=== PATIENT | male | born 1950 | race Hispanic/Latino ===

== ENCOUNTER 2017-05-25 10:04 | Inpatient (IN) | payer OTHER ==
[2017-05-25] MEDS ORDERED: Sodium Chloride 0.9% 1,000 ML IV STA (10:27)
[2017-05-25 10:42] LABS: BASO # 0.1 K/uL (0.0-0.2); BASO % 0.8 % (0.0-2.0); EOS # 0.4 K/uL (0.0-0.7); EOS % 3.5 % (0.0-4.0); HEMOGLOBIN 9.7 g/dL (12.0-18.0); LYMPH % 8.2 % (20.0-40.0); MEAN CORPUSCULAR HEMOGLOBIN 26.9 pg (27.0-31.0); MEAN CORPUSCULAR HGB CONC 33.6 g/dL (33.0-37.0); MEAN PLATELET VOLUME 6.9 fl (7.2-11.7); MONO # 0.6 K/uL (0.0-0.8); MONO % 4.9 % (0.0-10.0); NEUT # 9.8 K/uL (1.8-7.0); NEUT % 82.6 % (50.0-75.0); NRBC % 0.1 % (0.0-0.0); PLATELET COUNT 406 K/uL (130-400); RED CELL DISTRIBUTION WIDTH 15.4 % (11.5-14.5); WHITE BLOOD COUNT 11.8 K/uL (4.8-10.8)
[2017-05-25 10:56] LABS: ALB/GLOB RATIO 1.3 (1.0-2.1); ALBUMIN 3.5 g/dL (3.5-5.0); ALT/SGPT 30 U/L (21-72); AST/SGOT 25 U/L (17-59); BLOOD UREA NITROGEN 22 mg/dl (9-20); CALCIUM 8.9 mg/dL (8.4-10.2); GFR AFRICAN-AMERICAN 46; GFR NON-AFRICAN AMERICAN 38
[2017-05-25 11:04] LABS: VENOUS BLOOD GAS PCO2 44 mmHg (40-60); VENOUS BLOOD GAS PO2 24 mm/Hg (30-55)
[2017-05-25 11:09] LABS: B-TYPE NATRIURETIC PEPTIDE 2660 pg/ml (0-900)
[2017-05-25 11:16] LABS: INR 1.1 (0.9-1.2); PARTIAL THROMBOPLASTIN TIME 32.5 Seconds (25.6-37.1); PROTHROMBIN TIME 11.7 Seconds (9.8-13.1)
[2017-05-25 11:24] LABS: EOSINOPHIL 1 % (0-7); LYMPHOCYTE 9 % (20-50); MONOCYTE 5 % (0-10); NEUTROPHIL 85 % (42-75); PLATELET ESTIMATE NORMAL (NORMAL); TOTAL CELLS COUNTED 100
[2017-05-25 11:26] LABS: ANISOCYTOSIS SLIGHT; LARGE PLATELETS PRESENT; OVALOCYTES SLIGHT; POIKILOCYTOSIS SLIGHT
[2017-05-25] MEDS ORDERED: Iodixanol 320 MG/ML 100 ML BOTTLE IV ONE ×2 (11:35→12:09)
[2017-05-25] MEDS ORDERED: Sodium Chloride 0.9% 50 ML IV ONE ×2 (11:35→12:10)
--- NOTE | 2017-05-25 12:27 | ED PDOC ---
Syncope/Near Syncope/Dizziness Time Seen by Provider: 05/25/17 10:08 Chief Complaint (Nursing): Dizziness/Lightheaded Chief Complaint (Provider): I got dizzy History Per: Patient History/Exam Limitations: clinical condition Onset/Duration Of Symptoms: Hrs (1), Sudden Onset Current Symptoms Are (Timing): Still Present Activity At Onset Of Symptoms: Standing Associated Symptoms Preceding Syncopal Episode: Lightheadedness Possible Causative Factor(s): Lightheaded W/Standing, Lightheaded W/Exertion Fall Associated With With Symptoms: No Severity: Severe Additional Complaint(s): 66yo male history significant for 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 EMS found patient supine, pallorous and diaphoretic. He denies chest pain, abdominal pain, vomiting, dark/tarry stools or BRBPR. He notes new onset low back pain this morning and some SOB over the last week. Denies use of anticoagulants other than plavix. States hes not a diabetic. Vasc surgery Dr Simms at [facility]- I called office d/w Chris CHOI approx 10am who states patient had similar presyncopal episode about 2 weeks ago, before procedure. Was seen and worked up by cardiology who believed it to be vasovagal. He did have successful endovascular repair type 3 endoleak 05/13 without complication per JIMBO Herman. Initial history limited as patient poor historian on arrival- most history obtained from records [facility] faxed Past Medical History Vital Signs: Last Vital Signs Temp Pulse 56 L 05/25/17 11:29 Resp 18 05/25/17 11:29 BP 104/55 L 05/25/17 11:29 Pulse Ox 98 05/25/17 11:29 - Medical History PMH: Cardia Arrhythmia, HTN - Surgical History Other surgeries: traumatic leg surgery w vascular repair, AAA repair - Family History Family History: States: Unknown Family Hx - Living Arrangements Living Arrangements: With Family (in [place]) - Social History Current smoker - smoking cessation education provided: No (+prior smoker) - Home Medications Home Medications: Ambulatory Orders Medication Instructions Recorded Aspirin [Ecotrin] 81 mg PO DAILY 05/25/17 Carvedilol [Coreg] 12.5 mg PO Q12H 05/25/17 Clopidogrel [Plavix] 75 mg PO DAILY 05/25/17 Dextroamphetamine/Amphetamine 30 mg PO TID 05/25/17 [Adderall 30 mg Tablet] Fenofibrate 134 mg PO DAILY 05/25/17 Losartan [Cozaar] 50 mg PO BID 05/25/17 Pantoprazole Sodium [Protonix] 40 mg PO BID 05/25/17 Simvastatin [Zocor] 20 mg PO HS 05/25/17 amLODIPine [Norvasc] 5 mg PO DAILY 05/25/17 - Allergies Allergies/Adverse Reactions: Allergies Allergy/AdvReac Type Severity Reaction Status Date / Time No Known Allergies Allergy Verified 05/25/17 10:22 Review of Systems Constitutional: Positive for: Weakness. Negative for: Fever, Chills Cardiovascular: Positive for: Light Headedness. Negative for: Chest Pain, Palpitations Respiratory: Positive for: Shortness of Breath Gastrointestinal: Negative for: Nausea, Vomiting, Abdominal Pain Genitourinary Male: Negative for: Dysuria, Scrotal Pain Musculoskeletal: Positive for: Leg Pain. Negative for: Neck Pain, Back Pain Skin: Negative for: Rash, Lesions, Jaundice Neurological: Positive for: Dizziness. Negative for: Numbness, Incoordination, Change in Speech, Confusion, Headache Psych: Negative for: Depression Physical Exam - Reviewed Nursing Documentation Reviewed: Yes Vital Signs Reviewed: Yes - Physical Exam Appears: Positive for: Uncomfortable (+pallor and diaphoresis) Head Exam: Positive for: ATRAUMATIC, NORMAL INSPECTION, NORMOCEPHALIC Skin: Positive for: Normal Color, Warm, DRY Eye Exam: Positive for: EOMI, Normal appearance, PERRL ENT: Positive for: Normal ENT Inspection Neck: Positive for: Normal, Painless ROM Cardiovascular/Chest: Positive for: Chest Non Tender Respiratory: Positive for: CNT, Normal Breath Sounds Pulses-Femoral (L): 1+ Pulses-Femoral (R): 1+ Pulses-Radial (L): 1+ Pulses-Radial (R): 1+ Gastrointestinal/Abdominal: Positive for: Bowel Sounds, Soft, Other (no pulsatile mass). Negative for: Tenderness, Guarding Back: Positive for: Normal Inspection Extremity: Positive for: Normal ROM. Negative for: Deformity, Swelling Neurologic/Psych: Positive for: Alert, search engine marketing strategist II-XII (intact), Oriented. Negative for: Motor/Sensory Deficits - Laboratory Results Result Diagrams: 05/26/17 04:20 05/26/17 04:20 - ECG ECG: Positive for: Interpreted By Me, Discussed With Product Manager ECG Rhythm: Positive for: Sinus Bradycardia, Nonspecific Changes Interpretation Of ECG: prolonged qtc 513 O2 Sat by Pulse Oximetry: 98 Pulse Ox Interpretation: Normal - Radiology X-Ray: Read By Radiologist X-Ray Interpretation: Infiltrates Medical Decision Making Medical Decision Making: Workup initiated immediately for hypotension/ bradycardia with pallor and diaphoresis. Rule-out ACS/ aortic leak/ AAA, PE, arrythmia, GI bleed or other life threatening etiology. Further history to be obtained from vascular team at [facility] Accucheck performed ~200 IVF bolus initiated. EKG reviewed, sinus kenneth at 54bpm with qtc 515 1130a- d/w radiologist Dr Haney- recommend proceeding w IV contrast despite marginal GFR given AAA repair and need r/o PE (pt c/o recent SOB, had recent vascular procedure and hx PE many years ago). IVF continues. Labs reviewed, lactate <2; moderate anemia. Hgb from [facility] 11.4 on 05/11 Trop mildly elevated- continues to deny chest pain. Holding ASA to confirm no vascular leak. CT report d/w Dr Haney in radiology: Accession No. : [id number] Patient Name / ID : EMILEE Cabrera / [id number] Exam Date : 05/25/2017 11:56:13 ( Approved ) Study Comment : Sex / Age : M / 66Y Creator : Natty Winston Dictator : Natty Winston Shearing Machine Feeder : Clinical Analyst : Natty Winston Approver2 : Report Date : 05/25/2017 13:57:01 My Comment : PROCEDURE: CT Angiography Chest, Abdomen and Pelvis with and without intravenous contrast HISTORY: syncope. recent endov AAA repair, hx PE COMPARISON: None. TECHNIQUE: Contiguous axial images of the chest, abdomen and pelvis were obtained in the phase of aortic enhancement. A noncontrast enhanced CT of the chest was also obtained to evaluate for possible intramural thrombus. Coronal and sagittal reformats were generated. IV dose administered: 100 mL Visipaque 320. Second injection of 80 mL of Visipaque 320 Radiation dose: Total exam DLP = mGy-cm. This CT exam was performed using one or more of the following dose reduction techniques: Automated exposure control, adjustment of the mA and/or kV according to patient size, and/or use of iterative reconstruction technique. FINDINGS: CT ANGIOGRAPHY OF THE CHEST WITH & WITHOUT CONTRAST: AORTA (CHEST AND ABDOMEN): The thoracic aorta is ectatic and tortuous. There is a severe atherosclerotic disease seen. There are multiple foci of mural thickening and foci of focal dissection seen at the aortic arch and descending thoracic aorta associated with intimal calcification displacement in the noncontrast exam. Mild aneurysmal changes seen at the descending thoracic aorta with maximum diameter of 4.2 centimeter. There is infrarenal abdominal aortic aneurysm. The patient is status post endovascular graft repair of the AAA with the stent seen extending from the level of the celiac trunk to the distal abdominal aorta. There are also kissing endovascular stent extending from the distal abdominal aorta through the common iliac arteries. The infra renal abdominal aortic aneurysm measures 5.2 centimeter in the maximum transverse diameter. There is also right common iliac artery aneurysm measures 3 centimeter in the transverse diameter. There is no evidence of endoleak in the abdominal aortic graft stent. The patient is also status post endovascular stent at the proximal portion of the SMA and in both renal arteries. The celiac trunk is patent. There is a focal approximately 60- 70 percent stenosis seen at the origin of the celiac trunk. The SMA is also patent with endovascular graft seen at the proximal and origin of the SMA. There is delayed enhancement in the left kidney compared to the right suggestive of stenosis or occlusion at the left renal artery stent. The right renal artery is patent. There is moderate to severe atherosclerotic disease in the iliac arteries. There is focal approximately 70 percent stenosis at the distal right external iliac artery and proximal right common femoral artery. There are also foci of mild to moderate stenosis seen at the left external and common femoral arteries. Both internal iliac arteries are not opacified and likely occluded. LUNGS: There are advanced emphysematous changes predominant in the upper lobes. There is hazy opacity and infiltrate at the posterior aspect of the right mid and lower lung suspicious for pneumonia. Bibasilar small opacities likely atelectasis. MEDIASTINUM: The heart is mildly to moderately enlarged. The main pulmonary artery is normal in caliber. There is diffuse esophageal mucosal thickening. LYMPH NODES: Unremarkable. PLEURA: There are bilateral trace pleural effusions slightly larger on the right. BONES: Unremarkable. OTHER FINDINGS: None. CT ANGIOGRAPHY OF THE ABDOMEN AND PELVIS WITH CONTRAST: LIVER: There is 11 millimeter enhancing lesion in the inferior aspect of the right liver lobe image 132 series 11 of uncertain etiology. The liver is mildly enlarged. GALLBLADDER AND BILE DUCTS: Unremarkable. PANCREAS: Unremarkable. No gross lesion or ductal dilatation. SPLEEN: Unremarkable. ADRENALS: Unremarkable. No mass. KIDNEYS AND URETERS: The left kidney is smaller than the right. There is significant delayed in the left kidney suggestive of severe stenosis in the left renal artery. There are cystic lesions seen in both kidneys. No evidence of hydronephrosis. Vascular calcification are also seen in both renal arteries. VASCULATURE: Infrarenal abdominal aortic aneurysm with endovascular stent as described above. STOMACH AND BOWEL: Unremarkable. No obstruction. No gross mural thickening. APPENDIX: Normal appendix. PERITONEUM: Unremarkable. No free fluid. No free air. LYMPH NODES: Unremarkable. No enlarged lymph nodes. BLADDER: Diffuse urinary bladder wall thickening is noted. REPRODUCTIVE: The prostate is a heterogeneous mildly enlarged. BONES: No acute fracture. OTHER FINDINGS: None. IMPRESSION: No evidence of pulmonary embolus. Infrarenal abdominal aortic aneurysm measures 5.2 centimeter in the maximum transverse diameter. Status post endovascular stent insertion extending from the celiac trunk to the distal abdominal aorta and bilateral common iliac kissing stents extending from distal abdominal aorta to the distal left common iliac artery and to right external iliac artery. No evidence of endoleak in this study. Status post stent at the proximal and origin of SMA and both renal arteries. 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 Advanced emphysema. Heterogeneous opacity and small infiltrate at the right lung suspicious for pneumonia. Please correlate clinically. Cardiomegaly. Diffuse esophageal in mucosal thickening. Correlate clinically for esophagitis. 1.1 centimeter enhancing nodule at the right liver lobe of uncertain etiology. Interval follow-up reassessment of the liver by CT or MRI is suggested. Foci of stenosis in the external iliac and common femoral arteries more severe on the right. Enlarged prostate. Diffuse urinary bladder wall thickening. Antibiotics initiated for pneumonia, blood cultures obtained prior to Abx ~220p Dr Louis pt private civil rights investigator paged, awaiting call-back. Pt initially requested transfer to [facility] in [facility], attempts made to arrange transfer, then discussed w jose roberto dominguez, wants patient kept at [facility], discussed other options for transfer- [facility] included, and they refuse, want to remain [facility]. ~ 230p Case d/w Dr Fountain relocation services specialist [facility] cardiology, agrees w plan no anticoagulation for now,will consult. Review of [facility] records reveals lexiscan 04/11 no ekg ischemia. 3p Dr Olivarez ICU in ED, admit Dr Veloz relocation services specialist. 310p Case rediscussed w Chris PA for Dr Simms, they do not have broad cardio capabilities at [facility] thus would recommend against transfer. Disposition - Clinical Impression Clinical Impression: NSTEMI (non-ST elevated myocardial infarction), Pneumonia, Syncope, Bradycardia , Anemia - Patient ED Disposition Is Patient to be Admitted: Yes Counseled Patient/Family Regarding: Studies Performed, Diagnosis - Disposition Disposition Time: 13:00 (transfer vs admit (pt initially wanted transfer, hence delayed admission process [facility])) Condition: FAIR - Pt Status Changed To: Hospital Disposition Of: Inpatient - Admit Certification Admit to Inpatient:: After my assessment, the patient will require hospitalization for at least two midnights. This is because of the severity of symptoms shown, intensity of services needed, and/or the medical risk in this patient being treated as an outpatient. - POA Present On Arrival: Poor Glycemic Control
--- NOTE | 2017-05-25 12:45 | RAD ---
PROCEDURE: CHEST RADIOGRAPH, 1 VIEW HISTORY: syncope COMPARISON: FINDINGS: LUNGS: Increased parenchymal markings left lower lobe accentuated by rotation. Pneumonia should be considered. PLEURA: No pneumothorax or pleural fluid seen. CARDIOVASCULAR: Cardiomegaly. No radiographic findings to suggest acute or significant cardiovascular disease. OSSEOUS STRUCTURES: No significant abnormalities. VISUALIZED UPPER ABDOMEN: Normal. OTHER FINDINGS: None. IMPRESSION: Left lower lobe infiltrate.
--- NOTE | 2017-05-25 13:58 | CT ---
PROCEDURE: CT Angiography Chest, Abdomen and Pelvis with and without intravenous contrast HISTORY: syncope. recent endov AAA repair, hx PE COMPARISON: None. TECHNIQUE: Contiguous axial images of the chest, abdomen and pelvis were obtained in the phase of aortic enhancement. A noncontrast enhanced CT of the chest was also obtained to evaluate for possible intramural thrombus. Coronal and sagittal reformats were generated. IV dose administered: 100 mL Visipaque 320. Second injection of 80 mL of Visipaque 320 Radiation dose: Total exam DLP = mGy-cm. This CT exam was performed using one or more of the following dose reduction techniques: Automated exposure control, adjustment of the mA and/or kV according to patient size, and/or use of iterative reconstruction technique. FINDINGS: CT ANGIOGRAPHY OF THE CHEST WITH & WITHOUT CONTRAST: AORTA (CHEST AND ABDOMEN): The thoracic aorta is ectatic and tortuous. There is a severe atherosclerotic disease seen. There are multiple foci of mural thickening and foci of focal dissection seen at the aortic arch and descending thoracic aorta associated with intimal calcification displacement in the noncontrast exam. Mild aneurysmal changes seen at the descending thoracic aorta with maximum diameter of 4.2 centimeter. There is infrarenal abdominal aortic aneurysm. The patient is status post endovascular graft repair of the AAA with the stent seen extending from the level of the celiac trunk to the distal abdominal aorta. There are also kissing endovascular stent extending from the distal abdominal aorta through the common iliac arteries. The infra renal abdominal aortic aneurysm measures 5.2 centimeter in the maximum transverse diameter. There is also right common iliac artery aneurysm measures 3 centimeter in the transverse diameter. There is no evidence of endoleak in the abdominal aortic graft stent. The patient is also status post endovascular stent at the proximal portion of the SMA and in both renal arteries. The celiac trunk is patent. There is a focal approximately 60- 70 percent stenosis seen at the origin of the celiac trunk. The SMA is also patent with endovascular graft seen at the proximal and origin of the SMA. There is delayed enhancement in the left kidney compared to the right suggestive of stenosis or occlusion at the left renal artery stent. The right renal artery is patent. There is moderate to severe atherosclerotic disease in the iliac arteries. There is focal approximately 70 percent stenosis at the distal right external iliac artery and proximal right common femoral artery. There are also foci of mild to moderate stenosis seen at the left external and common femoral arteries. Both internal iliac arteries are not opacified and likely occluded. LUNGS: There are advanced emphysematous changes predominant in the upper lobes. There is hazy opacity and infiltrate at the posterior aspect of the right mid and lower lung suspicious for pneumonia. Bibasilar small opacities likely atelectasis. MEDIASTINUM: The heart is mildly to moderately enlarged. The main pulmonary artery is normal in caliber. There is diffuse esophageal mucosal thickening. LYMPH NODES: Unremarkable. PLEURA: There are bilateral trace pleural effusions slightly larger on the right. BONES: Unremarkable. OTHER FINDINGS: None. CT ANGIOGRAPHY OF THE ABDOMEN AND PELVIS WITH CONTRAST: LIVER: There is 11 millimeter enhancing lesion in the inferior aspect of the right liver lobe image 132 series 11 of uncertain etiology. The liver is mildly enlarged. GALLBLADDER AND BILE DUCTS: Unremarkable. PANCREAS: Unremarkable. No gross lesion or ductal dilatation. SPLEEN: Unremarkable. ADRENALS: Unremarkable. No mass. KIDNEYS AND URETERS: The left kidney is smaller than the right. There is significant delayed in the left kidney suggestive of severe stenosis in the left renal artery. There are cystic lesions seen in both kidneys. No evidence of hydronephrosis. Vascular calcification are also seen in both renal arteries. VASCULATURE: Infrarenal abdominal aortic aneurysm with endovascular stent as described above. STOMACH AND BOWEL: Unremarkable. No obstruction. No gross mural thickening. APPENDIX: Normal appendix. PERITONEUM: Unremarkable. No free fluid. No free air. LYMPH NODES: Unremarkable. No enlarged lymph nodes. BLADDER: Diffuse urinary bladder wall thickening is noted. REPRODUCTIVE: The prostate is a heterogeneous mildly enlarged. BONES: No acute fracture. OTHER FINDINGS: None. IMPRESSION: No evidence of pulmonary embolus. Infrarenal abdominal aortic aneurysm measures 5.2 centimeter in the maximum transverse diameter. Status post endovascular stent insertion extending from the celiac trunk to the distal abdominal aorta and bilateral common iliac kissing stents extending from distal abdominal aorta to the distal left common iliac artery and to right external iliac artery. No evidence of endoleak in this study. Status post stent at the proximal and origin of SMA and both renal arteries. 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 Advanced emphysema. Heterogeneous opacity and small infiltrate at the right lung suspicious for pneumonia. Please correlate clinically. Cardiomegaly. Diffuse esophageal in mucosal thickening. Correlate clinically for esophagitis. 1.1 centimeter enhancing nodule at the right liver lobe of uncertain etiology. Interval follow-up reassessment of the liver by CT or MRI is suggested. Foci of stenosis in the external iliac and common femoral arteries more severe on the right. Enlarged prostate. Diffuse urinary bladder wall thickening.
[2017-05-25] MEDS ORDERED: Azithromycin 500 MG in Sodium Chloride 0.9% 250 ML IVPB STA (14:00)
[2017-05-25] MEDS ORDERED: Azithromycin 500 MG IV IVPB ONE (15:06)
[2017-05-25] MEDS ORDERED: cefTRIAXone (Rocephin) 1 gm Inj ONE (15:06)
--- NOTE | 2017-05-25 16:35 | CARD ---
APPROVED REPORT EKG Measurement Heart [id number] <Conclusion> Sinus bradycardia Possible Left atrial enlargement Left ventricular hypertrophy Nonspecific ST abnormality Prolonged QT Abnormal ECG
[2017-05-25] MEDS ORDERED: Dextrose 5%/0.45% NS 1,000 ML IV SCH (19:00)
[2017-05-25] MEDS: Pantoprazole 40 mg EC Tab PO SCH (20:38)
--- NOTE | 2017-05-26 00:22 | CP.PCM.CON ---
History of Present Illness - History of Present Illness History of Present Illness: 66 y/o male admitted with presyncope and hypotension. Pt states he was sitting at work, when he felt dizzy and about to pass out. EMS was called. Upon arrival bp was 80/40, he was diaphoretic and pale per ER doctor. Pt denies cp or palp, he does admit to [facility] 2 days ago. He states it occurred several times with minimal exertion. No orthopnea or PND, no increase in SUBHA. Pt recently underwent his 3rd PVI to AAA at [place] several weeks ago. Pt had a presyncopal episode while in clinic at [place]. He underwent lexiscan st which was normal. echo revealed nml ef, no . Pt has a long history of PVD with multiple stents in b/l [employer] worker's and pvi x 3 for AAA. He denies cardiac cath or CAD history. At time of exam his bp is stable and he is asymptomatic. Trop x 1 negative. EKG shows LVH and LAD. Review of Systems - Constitutional Constitutional: As Per HPI. absent: Anorexia, Chills, Daytime Sleepiness, Excessive Sweating, Fatigue, Fever, Frequent Falls, Headache, Increased Appetite , Lethargy, Malaise, Night Sweats, Snoring, Sleep Apnea, Weight Gain, Weight Loss, Weakness, Other - EENT Eyes: absent: As Per HPI, Blind Spots, Blurred Vision, Change in Vision, Decreased Night Vision, Diplopia, Discharge, Dry Eye, Exophthalmos, Floaters, Irritation, Itchy Eyes, Loss of Peripheral Vision, Pain, Photophobia, Requires Corrective Lenses, Sees Flashes, Spots in Vision, Tunnel Vision, Other Visual Disturbances, Loss of Vision, Other Ears: absent: As Per HPI, Decreased Hearing, Ear Discharge, Ear Pain, Tinnitus, Abnormal Hearing, Disequilibrium, Dizziness, Other Nose/Mouth/Throat: absent: As Per HPI, Epistaxis, Nasal Congestion, Nasal Discharge, Nasal Obstruction, Nasal Trauma, Nose Pain, Post Nasal Drip, Sinus Pain, Sinus Pressure, Bleeding Gums, Change in Voice, Dental Pain, Dry Mouth, Dysphagia, Halitosis, Hoarsness, Lip Swelling, Mouth Lesions, Mouth Pain, Odynophagia, Sore Throat, Throat Swelling, Tongue Swelling, Facial Pain, Neck Pain, Neck Mass, Other - Cardiovascular Cardiovascular: As Per HPI, Diaphoresis, Dyspnea. absent: Acrocyanosis, Chest Pain, Chest Pain at Rest, Chest Pain with Activity, Claudication, Dyspnea on Exertion, Edema, Irregular Heart Rhythm, Pain Radiating to Arm/Neck/Jaw, Leg Edema, Leg Ulcers, Lightheadedness, Orthopnea, Palpitations, Paroxysmal Nocturnal Dyspnea, Pedal Edema, Radiating Pain, Rapid Heart Rate, Slow Heart Rate, Syncope, Other - Respiratory Respiratory: As Per HPI, Dyspnea on Exertion. absent: Cough, Dyspnea, Hemoptysis, Wheezing, Snoring, Stridor, Pain on Inspiration, Chest Congestion, Excessive Mucous Production, Change in Mucous Color, Pain with Coughing, Other - Gastrointestinal Gastrointestinal: As Per HPI. absent: Abdominal Pain, Belching, Bloating, Change in Bowel Habits, Change in Stool Character, Coffee Ground Emesis, Constipation, Cramping, Diarrhea, Dyspepsia, Dysphagia, Early Satiety, Excessive Flatus, Fecal Incontinence, Heartburn, Hematemesis, Hematochezia, Loose Stools, Melena, Nausea, Odynophagia, Temesmus, Vomiting, Other - Genitourinary Genitourinary: absent: As Per HPI, Change in Urinary Stream, Difficulty Urinating, Dysuria, Flank Pain, Hematuria, Pyuria, Nocturia, Urinary Incontinence, Urinary Frequency, Urinary Hesitance, Urinary Urgency, Voiding Freq/Small Amts, Freq UTI, Hx Renal/Bladder Calculi, Hx /Renal Surgery, Bladder Distension, Other - Musculoskeletal Musculoskeletal: absent: As Per HPI, Abnormal Gait, Arthralgias, Atrophy, Back Pain, Deformity, Joint Swelling, Limited Range of Motion, Loss of Height, Muscle Cramps, Muscle Weakness, Myalgias, Neck Pain, Numbness, Radiating Pain into Limb, Stiffness, Tingling, Other - Integumentary Integumentary: absent: As Per HPI, Acne, Alopecia, Bleeding Lesions, Change in Hair, Change in Nails, Change in Pigmentation, Changing Lesions, Dry Skin, Erythema, Furuncle, Hirsutism, Lesions, New Lesions, Non-Healing Lesions, Photosensitivity, Pruritus, Rash, Skin Pain, Skin Ulcer, Sores, Striae, Swelling , Unusual Bruising, Wounds, Jaundice, Other - Neurological Neurological: Dizziness. absent: As Per HPI, Abnormal Gait, Abnormal Hearing, Abnormal Movements, Abnormal Speech, Behavioral Changes, Burning Sensations, Confusion, Convulsions, Disequilibrium, Numbness, Focal Weakness, Frequent Falls , Headaches, Lack of Coordination, Loss of Vision, Memory Loss, Paresthesias, Radicular Pain, Restless Legs, Sensory Deficit, Syncope, Tingling, Tremor, Vertigo, Weakness, Other Visual Disturbances, Other - Psychiatric Psychiatric: absent: As Per HPI, Abnormal Sleep Pattern, Anhedonia, Anxiety, Auditory Hallucinations, Behavioral Changes, Change in Appetite, Change in Libido, Confusion, Depression, Difficulty Concentrating, Hallucinations, Homicidal Ideation, Hopelessness, Irritability, Memory Loss, Mood Swings, Panic Attacks, Paranoia, Suicidal Ideation, Visual Hallucinations, Tactile Hallucinations, Other - Endocrine Endocrine: absent: As Per HPI, Change in Body Appearance, Change in Libido, Cold Intolorance, Deepening of Voice, Excessive Sweating, Fatigue, Flushing, Heat Intolorance, Increase in Ring/Shoe/Hat Size, Palpitations, Polydipsia, Polyphagia, Polyuria, Other - Hematologic/Lymphatic Hematologic: absent: As Per HPI, Easy Bleeding, Easy Bruising, Lymphadenopathy, Other Past Patient History - Tetanus Immunizations Tetanus Immunization: Unknown - Past Medical History & Family History Past Medical History?: Yes Past Family History: Reviewed and not pertinent - Past Social History Smoking Status: Former Smoker Chewing Tobacco Use: No Cigar Use: No Alcohol: None Drugs: Denies Home Situation {Lives}: With Family Domestic Violence: Negative - CARDIAC Hx Cardia Arrhythmia: Yes Hx Hypertension: Yes - PULMONARY Hx Respiratory Disorders: Yes Hx Chronic Obstructive Pulmonary Disease (COPD): Yes - NEUROLOGICAL Hx Neurological Disorder: No - HEENT Hx HEENT Problems: No - RENAL Hx Chronic Kidney Disease: Yes - ENDOCRINE/METABOLIC Hx Endocrine Disorders: No - HEMATOLOGICAL/ONCOLOGICAL Hx Blood Disorders: Yes Hx Anemia: Yes - INTEGUMENTARY Hx Dermatological Problems: No - MUSCULOSKELETAL/RHEUMATOLOGICAL Hx Musculoskeletal Disorders: No Hx Falls: No - GASTROINTESTINAL Hx Gastrointestinal Disorders: No - GENITOURINARY/GYNECOLOGICAL Hx Genitourinary Disorders: No - PSYCHIATRIC Hx Psychophysiologic Disorder: No Hx Substance Use: No - SURGICAL HISTORY Hx Surgeries: Yes Hx Abdominal Aortic Aneurysm Repair: Yes Hx Angiogram: Yes Hx Cardiac Catheterization: No - ANESTHESIA Hx Anesthesia: Yes Meds Allergies/Adverse Reactions: Allergies Allergy/AdvReac Type Severity Reaction Status Date / Time No Known Allergies Allergy Verified 05/25/17 10:22 - Medications Medications: Current Medications Amlodipine Besylate (Norvasc) 5 mg PO DAILY [facility] Aspirin (Aspirin Chewable) 81 mg PO DAILY [facility] Atorvastatin Calcium (Lipitor) 40 mg PO DAILY [facility] Clopidogrel Bisulfate (Plavix) 75 mg PO DAILY [facility] Enoxaparin Sodium (Lovenox) 30 mg SC DAILY [facility] PRN Reason: Protocol Fenofibrate (Tricor) 145 mg PO DAILY [facility] Dextrose/Sodium Chloride (Dextrose 5%/0.45% Ns 1000 Ml) 1,000 mls @ 42 mls/hr IV .[id number] [facility] Stop: 05/26/17 18:52 Last Admin: 05/25/17 19:43 Dose: 42 mls/hr Losartan Potassium (Cozaar) 50 mg PO Q12 [facility] Last Admin: 05/25/17 21:41 Dose: 50 mg Pantoprazole Sodium (Protonix Ec Tab) 40 mg PO BID [facility] Last Admin: 05/25/17 20:38 Dose: 40 mg Physical Exam - Constitutional Appears: Non-toxic - Head Exam Head Exam: ATRAUMATIC, NORMAL INSPECTION, NORMOCEPHALIC - Eye Exam Eye Exam: EOMI, Normal appearance, PERRL. absent: Conjunctival injection, Nystagmus, Periorbital swelling, Periorbital tenderness, Scleral icterus Pupil Exam: NORMAL ACCOMODATION, PERRL. absent: Fixed, Irregular, Miosis, Mydriatic, Unequal - ENT Exam ENT Exam: Mucous Membranes Moist, Normal Exam. absent: Mucous Membranes Dry, Normal External Ear Exam, Normal Oropharynx, TM's Normal Bilaterally - Neck Exam Neck exam: Positive for: Normal Inspection. Negative for: Full Rom, Lymphadenopathy, Meningismus, Tenderness, Thyromegaly - Respiratory Exam Respiratory Exam: Decreased Breath Sounds, Clear to Auscultation Bilateral, NORMAL BREATHING PATTERN. absent: Accessory Muscle Use, Chest Wall Tenderness, Prolonged Expiratory Phase, Rales, Rhonchi, Wheezes, Respiratory Distress, Stridor - Cardiovascular Exam Cardiovascular Exam: REGULAR RHYTHM, +S1, +S2, Systolic Murmur. absent: Bradycardia, Tachycardia, Clicks, Diastolic murmur, Gallop, Irregular Rhythm, JVD, RRR, Rubs, +S4 - GI/Abdominal Exam GI & Abdominal Exam: Normal Bowel Sounds, Soft. absent: Bruit, Diminished Bowel Sounds, Distended, Firm, Guarding, Hernia, Hyperactive Bowel Sounds, Hypoactive Bowel Sounds, Mass, Organomegaly, Pulsatile Mass, Rebound, Rigid, Tenderness - Rectal Exam Rectal Exam: Deferred - Extremities Exam Extremities exam: Negative for: calf tenderness, full ROM, joint swelling, normal capillary refill, normal inspection, pedal edema, tenderness, pedal pulses present Additional comments: pulses 1+ b/l, chronic vascular changes noted. - Back Exam Back exam: NORMAL INSPECTION. absent: CVA tenderness (L), CVA tenderness (R), FULL ROM, muscle spasm, paraspinal tenderness, rash noted, tenderness, vertebral tenderness - Neurological Exam Neurological exam: Alert, CN II-XII Intact, Normal Gait, Oriented x3, Reflexes Normal - Psychiatric Exam Psychiatric exam: Normal Affect, Normal Mood - Skin Skin Exam: Dry, Intact, Normal Color, Warm Results - Vital Signs Recent Vital Signs: Last Vital Signs Temp 97.8 F 05/25/17 20:00 Pulse 74 05/25/17 22:00 Resp 26 H 05/25/17 22:00 BP 158/77 H 05/25/17 22:00 Pulse Ox 92 L 05/25/17 22:00 - Labs Result Diagrams: 05/26/17 04:20 05/26/17 04:20 Labs: Laboratory Results - last 24 hr 05/25/17 05/25/17 05/25/17 15:39 15:39 16:18 Troponin I 0.4270 H* Stool Occult Blood Blood Type O POSITIVE Blood Type Confirm O POSITIVE Antibody Screen Negative BBK History Checked No verified bt 05/25/17 17:00 Troponin I Stool Occult Blood Negative Blood Type Blood Type Confirm Antibody Screen BBK History Checked Assessment & Plan (1) Hypotension Status: Acute (2) AAA (abdominal aortic aneurysm) Status: Chronic (3) PVD (peripheral vascular disease) with claudication Status: Acute (4) History of tobacco abuse Status: Acute (5) Bradycardia Status: Acute (6) NSTEMI (non-ST elevated myocardial infarction) Status: Acute (7) Syncope Status: Acute - Assessment and Plan (Free Text) Plan: PT HAD 2 EPISODES IN 3 WEEKS. AFTER FIRST EPISODE HE HAD LEXISCAN NUCLEAR ST WHICH WAS REPORTEDLY WNL. TODAY PTS FIRST TROP IS POSITIVE. GIVEN THE HX OF SEVERE PVD, THE LIKELIHOOD OF CAD IS HIGH. I SUSPECT TRIPLE VESSEL DISEASE GIVEN PTS RECENT NORMAL STRESS TEST. PT SHOULD UNDERGO CARDIAC CATHETERIZATION. PLAN WILL BE FOR RADIAL ACCESS, ON THURSDAY AT [facility]. WILL MONITOR PT IN ICU. PT SHOULD HAVE TROP TRENDED ECHO IVF HYDRATION FOR HIS CR NEPHROLOGY EVAL HOLD ALL NEPHRO TOXIC MEDICATIONS MUCOMYST DUAL ANTIPLTS MONITOR IN ICU SERIAL EKGS RECORDS ARE BEING OBTAINED FROM [facility]. 120 MIN TOTAL CARE TIME.
[2017-05-26 00:48] LABS: CK-MB 1.65 ng/mL (0.0-3.38)
[2017-05-26 01:03] LABS: TROPONIN I 0.366 ng/mL (0.00-0.120)
--- NOTE | 2017-05-26 03:17 | CON ---
DATE: 05/25/2017 CRITICAL CARE CONSULTATION HISTORY OF PRESENT ILLNESS: The patient is in ER, being admitted to ICU. Time spent 50 minutes. The patient is seen and evaluated at the bedside. A 66-year-old white male, a reformed smoker with a history significant for emphysema, hypertension, hyperlipidemia, neuropathy, status post open abdominal aortic aneurysm/right common femoral artery repair in 1999, status post right SFA atherectomy, status post left BUILDING CERTIFIER endarterectomy in 12/2015, status post 3 vessel fenestrated EVAR proximal aortic cuff with a right iliac extension, 100% stenosis of the left internal carotid artery, status post recent aortogram, endovascular repair of type III endoleak with bifurcated endograft, SMA angioplasty and stent on 05/13/2017 at [facility]. The patient reportedly had cardiac workup done prior to this including a stress study reportedly normal, echo reportedly showed EF in the 66 percentage with a grade 1 diastolic dysfunction, noted aortic insufficiency, mild tricuspid/mitral regurgitation. The patient has been taking losartan, simvastatin, Coreg, and Plavix. Recently added amlodipine 10 mg, has been noncompliant with his medications. Reportedly, he took losartan, Coreg, and amlodipine this morning, went to work where he felt dizzy and pale, coworker called 911, EMS found the patient in supine, pale and diaphoretic. He had no chest pain, abdominal pain, vomiting or dark tarry stools, or bright red blood per rectum. The patient has been noted to have a low back pain since this morning. Has been noted to have shortness of breath limited to about 100 feet, however, denies paroxysmal nocturnal dyspnea or orthopnea. His ambulation has been limited because of the intermittent claudication. 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 Since then he has been ambulating with a cane, however, has been noted to have a neuropathy. FAMILY HISTORY: Noncontributory. SOCIAL HISTORY: Includes a former heavy smoker. Denies drinking alcohol. No recreational drug use. MEDICATIONS: As noted above. In the ER, the patient was given fluid challenge with improvement in his blood pressure. ALLERGIES: NONE DOCUMENTED. PHYSICAL EXAMINATION: GENERAL: He remains alert, awake, and in no distress now. VITAL SIGNS: Include temperature 98.6, heart rate 60, blood pressure 146/74, respiratory rate 20 thoracoabdominal, saturating 97% on oxygen 2 liters of nasal cannula. HEENT: Pupils are reactive. Conjunctivae are pink. Sclerae are white. NECK: Supple. Trachea is centered. CHEST: Bilateral breath sounds. Diminished in intensity. Expiration prolonged. HEART: Rhythm regular, S1 and S2 normal intensity. No S3 or S4, or gallop. No audible murmur. ABDOMEN: Bowel sounds present. Soft. No palpable mass. EXTREMITIES: Include a scar from the previous surgery. Dorsalis pedis palpable, but reduced in intensity. NEUROLOGIC: Nonfocal. LABORATORY DATA: WBC 11.8, hemoglobin 9.7, hematocrit 28.8, platelet count of 406, neutrophils 82.6, lymphocytes 8.2, monocytes 4.9. PT 11.7, INR 1.1, PTT 32.5. ABG; pH 7.4, PCO2 44, sodium 136, lactate of 1.6. SMA-7 sodium 134, potassium 4.4, chloride 103, CO2 of 23, blood urea nitrogen 22, creatinine 1.8, random glucose 201. Calcium 8.9, total bilirubin 1.4, AST 25, ALT 30, alkaline phosphatase 85, total CK 41, troponin 0.5250, proBNP 2660, total protein 6.2, albumin 3.5. TSH of 1.67, alcohol level less than 10. CT of the chest, abdomen and pelvis; no evidence of pulmonary embolism, infrarenal abdominal aortic aneurysm measures 5.2 cm in maximum transverse diameter, status post endovascular stent insertion extending from the celiac trunk to the distal abdominal aorta and bilateral common iliac Kissing stents extending from distal abdominal aorta to the distal left common iliac artery and to right external iliac artery. No evidence of endoleak. Status post stent at the proximal and at the origin of SMA and both renal arteries. Delayed enhancement of a small sized left kidney suggestive for chronic severe stenosis in the left renal artery. Advanced emphysema, hematogenous opacity, and small infiltrates suspicious for pneumonia. Diffuse esophageal and mucosal thickening. A 1.1 cm enhancing nodule at the right liver lobe of uncertain etiology, enlarged prostate. Diffuse urinary bladder wall thickening. Electrocardiogram; sinus bradycardia, possible left atrial enlargement, left ventricular hypertrophy, nonspecific ST-T abnormality, prolonged QT interval. Troponin 0.5-50. IMPRESSION AND PLAN: A 66-year-old male with hypertension, hyperlipidemia, neuropathy status post recent aortogram with endovascular repair of type III endoleak with bifurcated endograft admitted with a syncopal episode, on presentation noted to have hypertension, which responded to fluid challenge. The patient's troponin is noted to be elevated. Neurologic: Syncopal episode vasovagal versus cardiac. History of previous episodes before the surgical procedure, extensive evaluations done in the past, noted to be reportedly negative. As the patient has responded to the fluid challenge, has remained hemodynamically stable, we will closely monitor. Cardiac: Hypotension, bradycardia, syncopal episode, responded to fluid challenge. The patient took Coreg, losartan, and amlodipine together this morning, could all contributed a sudden drop in the blood pressure and contributing to the syncopal episode, noted to have a positive troponin. The patient's previous stress test is reportedly negative. Echo shows adequate ejection fraction, however, rule out some endocardial myocardial infarction given the patient's extensive vasculopathy. Pulmonary: Chronic obstructive pulmonary disease, a former smoker. We will add albuterol inhalation solution 2.5 mg via nebulizer q. 6 hours. Hematology: The patient's current hemoglobin is 9.7, previous reported 11.4, rule out gastrointestinal blood loss, as the patient has been on Prilosec and aspirin. Renal: Acute on chronic renal insufficiency, last creatinine is 1.7 on 05/11/2017. Continue intravenous mild hydration. Discuss with cardiology consult. Repeat echocardiogram pending. Troponin to repeat q. 8 hours to assess any ongoing elevation of myotrophin. Rodolfo Olivarez MD
[2017-05-26 05:14] LABS: MEAN CELL VOLUME 80.2 fl (80.0-94.0); MEAN CORPUSCULAR HEMOGLOBIN 26.9 pg (27.0-31.0); MEAN CORPUSCULAR HGB CONC 33.5 g/dL (33.0-37.0); RBC 3.33 Mil/uL (4.40-5.90); RED CELL DISTRIBUTION WIDTH 15.5 % (11.5-14.5); WHITE BLOOD COUNT 8.7 K/uL (4.8-10.8)
[2017-05-26 05:27] LABS: ALBUMIN 3.1 g/dL (3.5-5.0); CALCIUM 8.4 mg/dL (8.4-10.2)
[2017-05-26 05:32] LABS: ALB/GLOB RATIO 1.1 (1.0-2.1)
[2017-05-26] MEDS: Pantoprazole 40 mg EC Tab PO SCH (08:50)
[2017-05-26] MEDS ORDERED: Enoxaparin 30 mg Syringe SC SCH (09:00)
[2017-05-26 12:31] VITALS: TEMP 98.2
[2017-05-26 14:11] VITALS: BP 170/84; PULSE 78; RESP 31; O2SAT 94
--- NOTE | 2017-05-26 17:26 | CP.CCUPN ---
CCU Subjective - Physician Review Subjective (Free Text): 05/26/17 17:34 The patient was Seen/interviewed and examined by me at the bedside during ICU round, Medical records reviewed and Management issues were discussed and formulated with the house staff. 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 EMS found patient pale and diaphoretic. The ER physician called vascular surgery Dr Simms at [facility], D/W Chris CHOI who states patient had similar presyncopal episode about 2 weeks ago, before procedure, He was seen and worked up by cardiology, reports were faxed, showing normal Trop and stress test Labs sig for Positive trop and he was hypotensive. He was admitted to the ICU for NSTEMI Also low H/H, No hematemesis, dark/tarry stools or BRBPR. This mornig, hr is AAO x3, Denies CP, SOB, NYE, cough, Abd pain no n/v/d No fevers/chills Evaluated by Cardiology and he is scheduled for cardiac cath once renal function improved CCU Objective - Vital Signs / Intake & Output Vital Signs (Last 4 hours): Vital Signs Pulse Resp BP Pulse Ox 05/26/17 14:13 78 170/84 H 05/26/17 14:00 78 31 H 170/84 H 94 L 05/26/17 13:34 98 Intake and Output (Last 8hrs): Intake & Output 05/26/17 05/26/17 05/26/17 06:59 14:59 22:59 Intake Total 252 882 120 Output Total 600 450 Balance -348 432 120 Intake: IV 252 42 Oral 840 120 Output: Urine 600 450 Urine, Voided 600 450 - Physical Exam Head: Positive for: Atraumatic, Normocephalic. Negative for: Tenderness, Contusion Pupils: Positive for: PERRL. Negative for: Sluggish Extroacular Muscles: Positive for: EOMI Conjunctiva: Positive for: Normal Mouth: Positive for: Moist Mucous Membranes Pharnyx: Positive for: Normal. Negative for: ERYTHEMA Nose (Internal): Positive for: Normal Inspection Neck: Positive for: Normal Range of Motion, Trachea Midline. Negative for: Meningeal Signs, MIDLINE TENDERNESS, Paraspinal Tenderness, JVD, Lymphadenopathy , Bruit, Other Respiratory/Chest: Positive for: Clear to Auscultation, Good Air Exchange. Negative for: Respiratory Distress, Accessory Muscle Use, Wheezes, Decreased Breath Sounds, Rales, Retracting, Rhonchi, Tachypneic Cardiovascular: Positive for: Regular Rate and Rhythm, Normal S1, S2, Peripheal Pulses Present. Negative for: Murmurs, Tachycardic, Bradycardic Abdomen: Positive for: Normal Bowel Sounds. Negative for: Tenderness, Distention, Peritoneal Signs, Rebound Back: Negative for: CVA Tenderness Upper Extremity: Positive for: Normal Inspection, NORMAL PULSES, Capillary Refill < 2s. Negative for: Cyanosis Lower Extremity: Positive for: Normal Inspection, NORMAL PULSES. Negative for: Edema, CALF TENDERNESS Neurological: Positive for: GCS=15, CN II-XII Intact, Speech Normal, Motor Func Grossly Intact, Normal Sensory Function Skin: Positive for: Warm. Negative for: Rashes, Diaphoretic, Erythematous Psychiatric: Positive for: Alert, Oriented x 3, Normal Concentration, Normal Affect - Medications Active Medications: Active Medications Generic Name Dose Route Start Last Admin Trade Name Freq PRN Reason Stop Dose Admin Amlodipine Besylate 5 mg 05/26/17 09:00 05/26/17 08:50 Norvasc PO 5 mg DAILY VIKTORIA Administration Aspirin 81 mg 05/26/17 09:00 05/26/17 08:49 Aspirin Chewable PO 81 mg DAILY VIKTORIA Administration Atorvastatin Calcium 40 mg 05/26/17 09:00 05/26/17 08:50 Lipitor PO 40 mg DAILY VIKTORIA Administration Clopidogrel Bisulfate 75 mg 05/26/17 09:00 05/26/17 08:51 Plavix PO 75 mg DAILY VIKTORIA Administration Enoxaparin Sodium 30 mg 05/26/17 09:00 05/26/17 08:51 Lovenox SC 30 mg DAILY VIKTORIA Administration Protocol Fenofibrate 145 mg 05/26/17 09:00 05/26/17 08:50 Tricor PO 145 mg DAILY VIKTORIA Administration Dextrose/Sodium Chloride 1,000 mls @ 42 mls/hr 05/25/17 19:00 05/25/17 19:43 Dextrose 5%/0.45% Ns 1000 Ml IV 05/26/17 18:52 42 mls/hr .[id number] VIKTORIA Administration Losartan Potassium 100 mg 08/15/17 10:45 05/26/17 14:13 Cozaar PO 100 mg DAILY VIKTORIA Administration Pantoprazole Sodium 40 mg 05/25/17 17:00 05/26/17 08:50 Protonix Ec Tab PO 40 mg BID VIKTORIA Administration - Patient Studies Lab Studies: Microbiology Studies 05/25/17 15:39 Blood Culture - Preliminary Blood NO GROWTH AFTER 24 HOURS 05/25/17 14:50 Blood Culture - Preliminary Blood NO GROWTH AFTER 24 HOURS Lab Studies 05/26/17 05/26/17 05/25/17 Range/Units 04:20 04:20 23:55 WBC 8.7 (4.8-10.8) K/uL RBC 3.33 L (4.40-5.90) Mil/uL Hgb 9.0 L (12.0-18.0) g/dL Hct 26.7 L (35.0-51.0) % MCV 80.2 (80.0-94.0) fl MCH 26.9 L (27.0-31.0) pg MCHC 33.5 (33.0-37.0) g/dL RDW 15.5 H (11.5-14.5) % Plt Count 317 (130-400) K/uL Sodium 137 (132-148) mmol/l Potassium 3.8 (3.6-5.0) MMOL/L Chloride 105 (98-107) mmol/L Carbon Dioxide 25 (22-30) mmol/L Anion Gap 11 (10-20) BUN 21 H (9-20) mg/dl Creatinine 1.7 H (0.8-1.5) mg/dL Est GFR ( Amer) 49 Est GFR (Non-Af Amer) 40 POC Glucose (mg/dL) (65-110) mg/dL Random Glucose 97 (75-110) mg/dL Calcium 8.4 (8.4-10.2) mg/dL Total Bilirubin 0.8 (0.2-1.3) mg/dl AST 25 (17-59) U/L ALT 31 (21-72) U/L Alkaline Phosphatase 82 (38-126) U/L CK-MB (Mass) 1.65 (0.0-3.38) ng/mL Troponin I 0.3660 H* (0.00-0.120) ng/mL Total Protein 5.7 L (6.3-8.2) G/DL Albumin 3.1 L (3.5-5.0) g/dL Globulin 2.7 (2.2-3.9) gm/dL Albumin/Globulin Ratio 1.1 (1.0-2.1) Stool Occult Blood (NEGATIVE) Blood Type Blood Type Confirm Antibody Screen 05/25/17 05/25/17 05/25/17 Range/Units 17:00 16:18 16:06 WBC (4.8-10.8) K/uL RBC (4.40-5.90) Mil/uL Hgb (12.0-18.0) g/dL Hct (35.0-51.0) % MCV (80.0-94.0) fl MCH (27.0-31.0) pg MCHC (33.0-37.0) g/dL RDW (11.5-14.5) % Plt Count (130-400) K/uL Sodium (132-148) mmol/l Potassium (3.6-5.0) MMOL/L Chloride (98-107) mmol/L Carbon Dioxide (22-30) mmol/L Anion Gap (10-20) BUN (9-20) mg/dl Creatinine (0.8-1.5) mg/dL Est GFR ( Amer) Est GFR (Non-Af Amer) POC Glucose (mg/dL) 118 H (65-110) mg/dL Random Glucose (75-110) mg/dL Calcium (8.4-10.2) mg/dL Total Bilirubin (0.2-1.3) mg/dl AST (17-59) U/L ALT (21-72) U/L Alkaline Phosphatase (38-126) U/L CK-MB (Mass) (0.0-3.38) ng/mL Troponin I (0.00-0.120) ng/mL Total Protein (6.3-8.2) G/DL Albumin (3.5-5.0) g/dL Globulin (2.2-3.9) gm/dL Albumin/Globulin Ratio (1.0-2.1) Stool Occult Blood Negative (NEGATIVE) Blood Type Blood Type Confirm O POSITIVE Antibody Screen 05/25/17 Range/Units 15:39 WBC (4.8-10.8) K/uL RBC (4.40-5.90) Mil/uL Hgb (12.0-18.0) g/dL Hct (35.0-51.0) % MCV (80.0-94.0) fl MCH (27.0-31.0) pg MCHC (33.0-37.0) g/dL RDW (11.5-14.5) % Plt Count (130-400) K/uL Sodium (132-148) mmol/l Potassium (3.6-5.0) MMOL/L Chloride (98-107) mmol/L Carbon Dioxide (22-30) mmol/L Anion Gap (10-20) BUN (9-20) mg/dl Creatinine (0.8-1.5) mg/dL Est GFR ( Amer) Est GFR (Non-Af Amer) POC Glucose (mg/dL) (65-110) mg/dL Random Glucose (75-110) mg/dL Calcium (8.4-10.2) mg/dL Total Bilirubin (0.2-1.3) mg/dl AST (17-59) U/L ALT (21-72) U/L Alkaline Phosphatase (38-126) U/L CK-MB (Mass) (0.0-3.38) ng/mL Troponin I (0.00-0.120) ng/mL Total Protein (6.3-8.2) G/DL Albumin (3.5-5.0) g/dL Globulin (2.2-3.9) gm/dL Albumin/Globulin Ratio (1.0-2.1) Stool Occult Blood (NEGATIVE) Blood Type O POSITIVE Blood Type Confirm Antibody Screen Negative Laboratory Results - last 24 hr 05/25/17 05/25/17 05/25/17 15:39 16:06 16:18 WBC RBC Hgb Hct MCV MCH MCHC RDW Plt Count Sodium Potassium Chloride Carbon Dioxide Anion Gap BUN Creatinine Est GFR ( Amer) Est GFR (Non-Af Amer) POC Glucose (mg/dL) 118 H Random Glucose Calcium Total Bilirubin AST ALT Alkaline Phosphatase CK-MB (Mass) Troponin I Total Protein Albumin Globulin Albumin/Globulin Ratio Stool Occult Blood Blood Type O POSITIVE Blood Type Confirm O POSITIVE Antibody Screen Negative 0805/25/17 05/26/17 17:00 23:55 04:20 WBC 8.7 RBC 3.33 L Hgb 9.0 L Hct 26.7 L MCV 80.2 MCH 26.9 L MCHC 33.5 RDW 15.5 H Plt Count 317 Sodium Potassium Chloride Carbon Dioxide Anion Gap BUN Creatinine Est GFR ( Amer) Est GFR (Non-Af Amer) POC Glucose (mg/dL) Random Glucose Calcium Total Bilirubin AST ALT Alkaline Phosphatase CK-MB (Mass) 1.65 Troponin I 0.3660 H* Total Protein Albumin Globulin Albumin/Globulin Ratio Stool Occult Blood Negative Blood Type Blood Type Confirm Antibody Screen 05/26/17 04:20 WBC RBC Hgb Hct MCV MCH MCHC RDW Plt Count Sodium 137 Potassium 3.8 Chloride 105 Carbon Dioxide 25 Anion Gap 11 BUN 21 H Creatinine 1.7 H Est GFR ( Amer) 49 Est GFR (Non-Af Amer) 40 POC Glucose (mg/dL) Random Glucose 97 Calcium 8.4 Total Bilirubin 0.8 AST 25 ALT 31 Alkaline Phosphatase 82 CK-MB (Mass) Troponin I Total Protein 5.7 L Albumin 3.1 L Globulin 2.7 Albumin/Globulin Ratio 1.1 Stool Occult Blood Blood Type Blood Type Confirm Antibody Screen Fingerstick Blood Sugar Results: 118 Review of Systems - Cardiovascular Cardiovascular: absent: As Per HPI, Acrocyanosis, Chest Pain, Chest Pain at Rest , Chest Pain with Activity, Claudication, Diaphoresis, Dyspnea, Dyspnea on Exertion, Edema, Irregular Heart Rhythm, Pain Radiating to Arm/Neck/Jaw, Leg Edema, Leg Ulcers, Lightheadedness, Orthopnea, Palpitations, Paroxysmal Nocturnal Dyspnea, Pedal Edema, Radiating Pain, Rapid Heart Rate, Slow Heart Rate, Syncope, Other, UNREMARKABLE - Respiratory Respiratory: absent: As Per HPI, Cough, Dyspnea, Hemoptysis, Dyspnea on Exertion , Wheezing, Snoring, Stridor, Pain on Inspiration, Chest Congestion, Excessive Mucous Production, Change in Mucous Color, Pain with Coughing, Other, UNREMARKABLE Critical Care Progress Note - Extremities/Vascular Does the Patient have a Central Venous Catheter?: No Does the Patient need a Central Venous Catheter?: No Does the Patient have a Zambrano Catheter?: No Does the Patient need a Zambrano Catheter?: No - Nutrition Nutrition: Nutrition Category Date Time Status Heart Healthy Diet [DIET] Diets 05/25/17 Dinner Active Assessment/Plan (1) NSTEMI (non-ST elevated myocardial infarction) Current Visit: Yes Status: Acute Comment: ASA, Plavix, Norvasc, Cozaar and Atorvastatin/Tricor Lovenox ECHO Trop trending down (2) AAA (abdominal aortic aneurysm) Current Visit: Yes Status: Acute (3) Anemia Current Visit: Yes Status: Acute (4) History of tobacco abuse Current Visit: Yes Status: Acute (5) Hypotension Current Visit: Yes Status: Acute (6) PVD (peripheral vascular disease) with claudication Current Visit: Yes Status: Acute (7) Pneumonia Current Visit: Yes Status: Acute (8) Syncope Current Visit: Yes Status: Acute - Assessment and Plan (Free Text) Assessment: I have reviewed and discussed all the relevant clinical, laboratory, hemodynamic , radiographic data and medications with the patient, we went over the treatment plans and alternatives Pt's current status is discussed with pt / pt's over the phone. Patient with NSTEMI, needs further cardiac work up Patient is adamant about signing AMA, he contacted his cardiology in [place], and will make arrangement for further cardiac work up there. We reviewed the rationale, risks, and alternatives to treatment with the patient , The patient was given the opportunity to ask many questions which were answered to his satisfaction.
--- NOTE | 2017-05-26 19:02 | CP.PCM.HP ---
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 As per ED attending, EMS found patient supine, pallorous and diaphoretic.Patient denies chest pain, abdominal pain, vomiting, dark/tarry stools. Patient states that he noted new onset low back pain yesterda morning and some SOB over the last week. Patient seen and examined with attending this morning. Denies Cp, SOB, N/V, abdominal pain , urinary symptoms at this eval. Afebrile overnight, but noted to have elevated BP. Present on Admission - Present on Admission Any Indicators Present on Admission: No History of DVT/PE: No History of Uncontrolled Diabetes: No Urinary Catheter: No Decubitus Ulcer Present: No Review of Systems - Review of Systems All systems: reviewed and no additional remarkable complaints except (as per HPI ) Past Patient History - Past Social History Smoking Status: Former Smoker - CARDIAC Hx Cardia Arrhythmia: Yes Hx Hypertension: Yes - MUSCULOSKELETAL/RHEUMATOLOGICAL Hx Falls: No - PSYCHIATRIC Hx Substance Use: No - SURGICAL HISTORY Hx Surgeries: Yes Hx Cardiac Catheterization: Yes - ANESTHESIA Hx Anesthesia: Yes Meds Allergies/Adverse Reactions: Allergies Allergy/AdvReac Type Severity Reaction Status Date / Time No Known Allergies Allergy Verified 05/25/17 10:22 Physical Exam - Constitutional Appears: No Acute Distress - ENT Exam ENT Exam: Mucous Membranes Moist - Respiratory Exam Respiratory Exam: Clear to Auscultation Bilateral, NORMAL BREATHING PATTERN - Cardiovascular Exam Cardiovascular Exam: REGULAR RHYTHM, +S1, +S2 - GI/Abdominal Exam GI & Abdominal Exam: Normal Bowel Sounds, Soft. absent: Distended, Firm, Guarding - Extremities Exam Extremities exam: Positive for: normal inspection. Negative for: calf tenderness, pedal edema - Neurological Exam Neurological exam: Alert, Oriented x3 - Skin Skin Exam: Dry, Intact, Normal Color Results - Vital Signs Recent Vital Signs: Last Vital Signs Temp 98.2 F 05/26/17 12:00 Pulse 78 05/26/17 14:13 Resp 31 H 05/26/17 14:00 BP 170/84 H 05/26/17 14:13 Pulse Ox 94 L 05/26/17 14:00 - Labs Result Diagrams: 05/26/17 04:20 05/26/17 04:20 Labs: Laboratory Results - last 24 hr 05/25/17 05/25/17 05/25/17 16:06 16:18 23:55 WBC RBC Hgb Hct MCV MCH MCHC RDW Plt Count Sodium Potassium Chloride Carbon Dioxide Anion Gap BUN Creatinine Est GFR ( Amer) Est GFR (Non-Af Amer) POC Glucose (mg/dL) 118 H Random Glucose Calcium Total Bilirubin AST ALT Alkaline Phosphatase CK-MB (Mass) 1.65 Troponin I 0.3660 H* Total Protein Albumin Globulin Albumin/Globulin Ratio Blood Type Confirm O POSITIVE 05/26/17 05/26/17 04:20 04:20 WBC 8.7 RBC 3.33 L Hgb 9.0 L Hct 26.7 L MCV 80.2 MCH 26.9 L MCHC 33.5 RDW 15.5 H Plt Count 317 Sodium 137 Potassium 3.8 Chloride 105 Carbon Dioxide 25 Anion Gap 11 BUN 21 H Creatinine 1.7 H Est GFR ( Amer) 49 Est GFR (Non-Af Amer) 40 POC Glucose (mg/dL) Random Glucose 97 Calcium 8.4 Total Bilirubin 0.8 AST 25 ALT 31 Alkaline Phosphatase 82 CK-MB (Mass) Troponin I Total Protein 5.7 L Albumin 3.1 L Globulin 2.7 Albumin/Globulin Ratio 1.1 Blood Type Confirm Assessment & Plan (1) NSTEMI (non-ST elevated myocardial infarction) Assessment and Plan: c/w cardiac monitoring c/w current management f/u troponin I f/u Cardiology recommendations Status: Acute (2) AAA (abdominal aortic aneurysm) Assessment and Plan: CT abd/pelvis showed no evidence of endoleak. S/p endovascular stent. Status: Chronic (3) Syncope Assessment and Plan: consider echo f/u Cardiology recommendations Status: Acute (4) Pneumonia Assessment and Plan: CXR showed left lower lobe infiltrate c/w azithromycin and Rocephin Status: Acute (5) Hypertension Assessment and Plan: c/w home medications consider adjust dose or add new medications for better BP control Status: Chronic - Date & Time Date: 05/26/17 Time: 08:05
== END 2017-05-26 17:20 | disposition left against medical advice (07) | DRG 282 ==
LOC: H.ER 10:04 → H.ERHOLD 14:38 → H.ICU/CCU 16:35
PROVIDERS: ADMIT Family Medicine; ATTEND Family Medicine
DX: I21.4 Non-ST elevation (NSTEMI) myocardial infarction (principal); G62.9 Polyneuropathy, unspecified; J44.9 Chronic obstructive pulmonary disease, unspecified; I73.9 Peripheral vascular disease, unspecified; I12.9 Hypertensive chronic kidney disease with stage 1 through stage 4 chronic kidney disease, or unspecified chronic kidney disease; I71.4 Abdominal aortic aneurysm, without rupture; N18.9 Chronic kidney disease, unspecified; E78.5 Hyperlipidemia, unspecified; Z91.14 Patient's other noncompliance with medication regimen; Z87.891 Personal history of nicotine dependence